=== PATIENT | male | born 1950 | race Asian ===

== ENCOUNTER 2021-09-23 12:35 | Emergency (ER) | payer SELFPAY ==
[~2021-09-23] VITALS: Ht 160 cm; Wt 77.3 kg
[~2021-09-23 12:35] MED LIST: ANTIBIOTIC; FERROUS SULFAT325 MG PO; FISH OIL1 IU PO; STOOL SOFTENER100 MG PO; VITAMIN C1 TAB PO
[2021-09-23] MEDS ORDERED: ACTOS30 MG PO (13:15)
[2021-09-23] MEDS ORDERED: PLAVIX 75MG TAB75 MG PO (13:15)
[2021-09-23] MEDS ORDERED: ASPIRIN 81M81 MG/TA2 PO (13:16)
[2021-09-23] MEDS ORDERED: LIPITOR 80MG80 MG PO (13:16)
[2021-09-23] MEDS ORDERED: PRINIVIL40 MG PO (13:16)
[2021-09-23] MEDS ORDERED: ROBITUSSIN DM 105 ML PO (13:17)
[2021-09-23] MEDS ORDERED: NORVASC 5MG5 MG/TAB PO (13:17)
[2021-09-23] MEDS ORDERED: HCTZ 25MG TAB25 MG PO (13:17)
[2021-09-23] MEDS ORDERED: VITAMINC1000TA PO (13:18)
[2021-09-23 13:27] LABS: BASO % 0.5 % (0.0-2.0); EOS # 0.1 K/mm3 (0.0-0.7); EOS % 1.5 % (0.0-4.0); GRAN # 4.1 K/mm3 (1.4-6.5); GRAN % 67.2 % (42.2-75.2); HEMATOCRIT 37.3 % (42.0-52.0); HEMOGLOBIN 11.7 g/dl (13.5-18.0); LYMPH # 1.3 K/mm3 (1.2-3.4); MEAN CELL VOLUME 76 fl (80.0-100.0); MEAN CORPUSCULAR HEMOGLOBIN 24 pg (27-31); MEAN CORPUSCULAR HGB CONC 31 g/dl (33.0-37.0); MEAN PLATELET VOLUME 10.3 fl (7.4-10.4); MONO # 0.6 K/mm3 (0.1-0.6); MONO % 9.3 % (1.7-9.3); PLATELET COUNT 197 K/mm3 (130-400); RED BLOOD COUNT 4.93 M/mm3 (4.20-5.60); REDCELL DISTRIBUTION WIDTH-CV 14.7 % (11.5-14.5)
[2021-09-23 13:35] LABS: BILIRUBIN,TOTAL 0.9 mg/dL (0.2-1.2); CREATININE, serum 1.66 mg/dL (0.72-1.25); POTASSIUM 4.7 mmol/L (3.5-4.5); TOTAL PROTEIN 6.9 gm/dL (6.2-8.1)
[2021-09-23 13:40] LABS: TROPONIN-I 0.01 ng/mL (0.00-0.033)
[2021-09-23 16:55] VITALS: BP 123/76; PULSE 118; TEMP 98
== END 2021-09-23 17:24 | disposition home or self-care (01) ==
LOC: COL.ER 12:35
PROVIDERS: Emergency Medicine
DX: R55 Syncope and collapse (principal); R00.0 Tachycardia, unspecified; R94.4 Abnormal results of kidney function studies; I10 Essential (primary) hypertension; F03.90 Unspecified dementia, unspecified severity, without behavioral disturbance, psychotic disturbance, mood disturbance, and anxiety; E78.00 Pure hypercholesterolemia, unspecified; Z20.822 Contact with and (suspected) exposure to COVID-19; Z79.02 Long term (current) use of antithrombotics/antiplatelets; Z79.899 Other long term (current) drug therapy
CPT/HCPCS: J7030